=== PATIENT | male | born 1990 | race Two or more races ===

== ENCOUNTER → 2021-12-03 13:34 | Outpatient (BNVA) | payer MEDICAID, SELFPAY | PROVIDERS: Visit Provider Internal Medicine | DX: Z51.81 Encounter for therapeutic drug level monitoring (principal); F11.20 Opioid dependence, uncomplicated | CPT/HCPCS: 80305; 99202 ==

== ENCOUNTER → 2021-12-12 15:39 | Outpatient (BNVA) | payer MEDICAID, SELFPAY | PROVIDERS: Visit Provider Internal Medicine | DX: Z51.81 Encounter for therapeutic drug level monitoring (principal); F11.20 Opioid dependence, uncomplicated | CPT/HCPCS: 80305; 99212 ==

== ENCOUNTER → 2022-01-07 13:10 | Outpatient (BNVA) | payer MEDICAID, SELFPAY | PROVIDERS: Visit Provider Internal Medicine | DX: Z51.81 Encounter for therapeutic drug level monitoring (principal); F11.20 Opioid dependence, uncomplicated | CPT/HCPCS: 80305; 99212 ==

== ENCOUNTER → 2022-02-04 13:10 | Outpatient (BNVA) | payer MEDICAID, SELFPAY | PROVIDERS: Visit Provider Internal Medicine | DX: Z51.81 Encounter for therapeutic drug level monitoring (principal); F11.20 Opioid dependence, uncomplicated | CPT/HCPCS: 80305; 99212 ==

== ENCOUNTER → 2022-03-06 13:04 | Outpatient (BNVA) | payer MEDICAID, SELFPAY | PROVIDERS: Visit Provider Internal Medicine | DX: F11.20 Opioid dependence, uncomplicated (principal) | CPT/HCPCS: 80305; 99212 ==

== ENCOUNTER → 2022-04-03 13:08 | Outpatient (BNVA) | payer MEDICAID, SELFPAY | PROVIDERS: Visit Provider Internal Medicine | DX: F11.90 Opioid use, unspecified, uncomplicated (principal) | CPT/HCPCS: 80305; 99212 ==

== ENCOUNTER → 2022-06-02 14:39 | Outpatient (BNVA) | payer MEDICAID, SELFPAY | PROVIDERS: Visit Provider Internal Medicine | DX: Z51.81 Encounter for therapeutic drug level monitoring (principal); F11.20 Opioid dependence, uncomplicated | CPT/HCPCS: 99212 ==

== ENCOUNTER → 2022-06-29 14:54 | Outpatient (BNVA) | payer MEDICAID, SELFPAY | PROVIDERS: Visit Provider Internal Medicine | DX: F11.20 Opioid dependence, uncomplicated (principal); Z51.81 Encounter for therapeutic drug level monitoring; Z79.899 Other long term (current) drug therapy | CPT/HCPCS: 99212 ==

== ENCOUNTER → 2022-07-27 15:03 | Outpatient (BNVA) | payer MEDICAID, SELFPAY | PROVIDERS: Visit Provider Internal Medicine | DX: F11.20 Opioid dependence, uncomplicated (principal); Z51.81 Encounter for therapeutic drug level monitoring | CPT/HCPCS: 99212 ==

== ENCOUNTER 2022-08-09 11:23 | Emergency (ER) | payer MEDICAID, SELFPAY ==
--- NOTE | 2022-08-09 11:28 | PC.NURSE ---
CALLED FOR STAFF INTERNIST OFFICE BASED ONLY
[2022-08-09 11:48] VITALS: BP 100/75; PULSE 81; RESP 18; TEMP 36.8; O2SAT 97; BMI 26.2
[2022-08-09 19:14] VITALS: BP 101/48; PULSE 66; RESP 18; TEMP 36.8; O2SAT 99
== END 2022-08-09 19:41 | disposition left against medical advice (07) ==
PROVIDERS: Emergency Provider Emergency Medicine
DX: R51.9 Headache, unspecified (principal)
CPT/HCPCS: 99283

== ENCOUNTER → 2022-08-24 14:56 | Outpatient (BNVA) | payer MEDICAID, SELFPAY | PROVIDERS: Visit Provider Internal Medicine | DX: Z51.81 Encounter for therapeutic drug level monitoring (principal); F11.20 Opioid dependence, uncomplicated | CPT/HCPCS: 99212 ==

== ENCOUNTER → 2022-09-21 14:18 | Outpatient (BNVA) | payer MEDICAID, SELFPAY | PROVIDERS: Visit Provider Nurse Practitioner Psychiatric/Mental Health | DX: Z51.81 Encounter for therapeutic drug level monitoring (principal); F11.21 Opioid dependence, in remission | CPT/HCPCS: 99212 ==

== ENCOUNTER → 2022-10-19 14:42 | Outpatient (BNVA) | payer MEDICAID, SELFPAY | PROVIDERS: Visit Provider Nurse Practitioner Psychiatric/Mental Health | DX: F11.20 Opioid dependence, uncomplicated (principal); Z51.81 Encounter for therapeutic drug level monitoring; Z79.899 Other long term (current) drug therapy | CPT/HCPCS: 80305; 99212 ==

== ENCOUNTER → 2022-11-17 13:12 | Outpatient (BNVA) | payer MEDICAID, SELFPAY | PROVIDERS: Visit Provider Nurse Practitioner Psychiatric/Mental Health | DX: Z51.81 Encounter for therapeutic drug level monitoring (principal); F11.21 Opioid dependence, in remission | CPT/HCPCS: 99212 ==

== ENCOUNTER → 2022-12-15 14:01 | Outpatient (BNVA) | payer MEDICAID, SELFPAY | PROVIDERS: Visit Provider Nurse Practitioner Psychiatric/Mental Health | DX: F11.20 Opioid dependence, uncomplicated (principal) | CPT/HCPCS: 80305; 99212 ==

== ENCOUNTER → 2023-01-12 14:30 | Outpatient (BNVA) | payer MEDICAID, SELFPAY | DX: Z79.899 Other long term (current) drug therapy (principal); Z51.81 Encounter for therapeutic drug level monitoring; F11.21 Opioid dependence, in remission ==

== ENCOUNTER → 2023-02-09 16:18 | Outpatient (BNVA) | payer MEDICAID, SELFPAY | PROVIDERS: Visit Provider Nurse Practitioner Psychiatric/Mental Health | DX: F11.21 Opioid dependence, in remission (principal); Z79.899 Other long term (current) drug therapy; Z51.81 Encounter for therapeutic drug level monitoring | CPT/HCPCS: 99212 ==

== ENCOUNTER → 2023-03-09 16:27 | Outpatient (BNVA) | payer MEDICAID, SELFPAY | PROVIDERS: Visit Provider Nurse Practitioner Psychiatric/Mental Health | DX: Z51.81 Encounter for therapeutic drug level monitoring (principal); F11.21 Opioid dependence, in remission | CPT/HCPCS: 80305; 99212 ==

== ENCOUNTER 2023-05-10 15:25 | Outpatient (AMB) | payer MEDICAID, SELFPAY ==
--- NOTE | 2023-05-10 15:30 | A.OFFVIS_ITS ---
Intake Vital Signs 05/10/23 15:34 BP 116/70 Blood Pressure Location Lt radial Position Sitting Pulse 77 Pulse Source Pulse Oximeter Pulse Oximetry (%) 97 Oxygen Delivery Method Room Air Intake Visit Reasons: mat visit Intake Note: THE PATIENT PRESENTS FOR A MAT VISIT Decorator Mannequin Required: No Allergies No Known Allergies Allergy (Verified 05/10/23 15:35) HPI mat visit HPI Details Patient presents for follow up Currently prescribed Suboxone 8mg BID Reports doing well with recovery Discussed desire to taper and eventually discontinue reviewed Sublocade as an option--answered questions and provided patient with written medication information [facility] Medical History Opioid use disorder Review of Systems Const Reports as per HPI and Reports no additional complaints Physical Exam Vital Signs: Last Vital Signs Pulse 77 05/10/23 15:34 BP 116/70 05/10/23 15:34 Pulse Ox 97 05/10/23 15:34 Oxygen Delivery Method Room Air 05/10/23 15:34 Const General: cooperative, healthy appearing, comfortable, no acute distress, well developed and alert Nutritional Appearance: well nourished Orientation/consciousness: patient oriented x3 Limitations: no limitations Neuro General: patient oriented x3 Psych Appearance: well kempt Mental Status: mental status grossly normal Speech and movement: Normal speech and movement present Affect: normal affect Attitude: cooperative Thought process: Normal thought process present Thought content: Normal thought content present Insight: Good insight present (Psych) Judgement: Good judgement present (Psych) Assessment & Plan Assessment & Plan (1) Opioid use disorder, moderate, in sustained remission: Code(s): F11.21 - Opioid dependence, in remission Plan: * continue suboxone at current dose * follow up 2 months Medications: Refilled buprenorphine-naloxone 8-2 mg (Suboxone) 1 film sublingual BID 30 days 60 ea 1RF Coding Level of Care Code Est Pt Level 3 (52289) Diagnoses Opioid use disorder, moderate, in sustained remission F11.21
[2023-05-10 15:34] VITALS: BP 116/70; PULSE 77; O2SAT 97
== END 2023-05-10 16:03 | disposition home or self-care (01) ==
LOC: HO.HCC 15:25
PROVIDERS: Visit Provider Nurse Practitioner Psychiatric/Mental Health
DX: F11.21 Opioid dependence, in remission (principal)
CPT/HCPCS: 99213

== ENCOUNTER → 2023-05-10 15:25 | Outpatient (BNVA) | payer MEDICAID, SELFPAY | PROVIDERS: Visit Provider Nurse Practitioner Psychiatric/Mental Health | DX: F11.20 Opioid dependence, uncomplicated (principal) | CPT/HCPCS: 99212; 99213 ==

== ENCOUNTER 2023-07-06 14:45 | Outpatient (AMB) | payer MEDICAID, SELFPAY ==
--- NOTE | 2023-07-06 14:47 | A.OFFVIS_ITS ---
Intake Vital Signs 07/06/23 14:51 BP 112/72 Blood Pressure Location Lt radial Position Sitting Pulse 74 Pulse Source Pulse Oximeter Pulse Oximetry (%) 96 Oxygen Delivery Method Room Air Intake Visit Reasons: MAT Visit Intake Note: THE PATIENT PRESENTS FOR A MAT VISIT Airline Radio Operator Required: No Allergies No Known Allergies Allergy (Verified 05/10/23 15:35) HPI MAT Visit HPI Details Pt presents for OUD treatment follow up Currently being prescribed Suboxone 8mg BID Denies any side effects related to medication Doing well with recovery reminded to complete lab work [facility] Medical History Opioid use disorder Review of Systems Const Reports as per HPI and Reports no additional complaints Physical Exam Vital Signs: Last Vital Signs Pulse 74 07/06/23 14:51 BP 112/72 07/06/23 14:51 Pulse Ox 96 07/06/23 14:51 Oxygen Delivery Method Room Air 07/06/23 14:51 Const General: cooperative, healthy appearing, comfortable, no acute distress, well developed and alert Nutritional Appearance: well nourished Orientation/consciousness: patient oriented x3 Limitations: no limitations Neuro General: patient oriented x3 Psych Appearance: well kempt Mental Status: mental status grossly normal Speech and movement: Normal speech and movement present Affect: normal affect Attitude: cooperative Thought process: Normal thought process present Thought content: Normal thought content present Insight: Good insight present (Psych) Judgement: Good judgement present (Psych) Assessment & Plan Assessment & Plan (1) Opioid use disorder, moderate, in sustained remission: Code(s): F11.21 - Opioid dependence, in remission Plan: * continue suboxone at current dose * follow up 2 months Medications: Refilled buprenorphine-naloxone 8-2 mg (Suboxone) 1 film sublingual BID 60 ea 1RF 30 days Coding Level of Care Code Est Pt Level 3 (91053) Diagnoses Opioid use disorder, moderate, in sustained remission F11.21
[2023-07-06 14:51] VITALS: BP 112/72; PULSE 74; O2SAT 96
== END 2023-07-06 15:10 | disposition home or self-care (01) ==
PROVIDERS: Visit Provider Nurse Practitioner Psychiatric/Mental Health
DX: F11.21 Opioid dependence, in remission (principal)
CPT/HCPCS: 99213

== ENCOUNTER → 2023-07-06 14:45 | Outpatient (BNVA) | payer MEDICAID, SELFPAY | PROVIDERS: Visit Provider Nurse Practitioner Psychiatric/Mental Health | DX: F11.20 Opioid dependence, uncomplicated (principal) | CPT/HCPCS: 99212 ==

== ENCOUNTER 2023-09-01 15:55 | Outpatient (AMB) | payer MEDICAID, SELFPAY ==
--- NOTE | 2023-09-01 15:58 | A.OFFVIS_ITS ---
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 [facility] Medical History (Updated 09/02/23 @ 17:08 by Gaby Mcfarland CNP) Opioid use disorder Review of Systems Const Reports as per HPI and Reports no additional complaints Physical Exam Vital Signs: Last Vital Signs Pulse 84 09/01/23 16:09 BP 116/74 09/01/23 16:09 Pulse Ox 96 09/01/23 16:09 Oxygen Delivery Method Room Air 09/01/23 16:09 Const General: cooperative, healthy appearing, comfortable, no acute distress, well developed and alert Nutritional Appearance: well nourished Orientation/consciousness: patient oriented x3 Limitations: no limitations Neuro General: patient oriented x3 Psych Appearance: well kempt Mental Status: mental status grossly normal Speech and movement: Normal speech and movement present Affect: normal affect Attitude: cooperative Thought process: Normal thought process present Thought content: Normal thought content present Insight: Good insight present (Psych) Judgement: Good judgement present (Psych) Assessment & Plan Assessment & Plan (1) Opioid use disorder, moderate, in sustained remission: Code(s): F11.21 - Opioid dependence, in remission Plan: * continue suboxone at current dose * followup 3 months Medications: Refilled buprenorphine-naloxone 8-2 mg (Suboxone) 1 film sublingual BID 60 ea 1RF 30 days Coding Level of Care Code Est Pt Level 3 (02811) Diagnoses Opioid use disorder, moderate, in sustained remission F11.21
[2023-09-01 16:09] VITALS: BP 116/74; PULSE 84; O2SAT 96
== END 2023-09-01 16:33 | disposition home or self-care (01) ==
PROVIDERS: Visit Provider Nurse Practitioner Psychiatric/Mental Health
DX: F11.21 Opioid dependence, in remission (principal)
CPT/HCPCS: 99213

== ENCOUNTER → 2023-09-01 15:55 | Outpatient (BNVA) | payer MEDICAID, SELFPAY | PROVIDERS: Visit Provider Nurse Practitioner Psychiatric/Mental Health | DX: F11.21 Opioid dependence, in remission (principal) | CPT/HCPCS: 99212 ==

== ENCOUNTER 2023-11-24 15:24 | Outpatient (AMB) | payer MEDICAID, SELFPAY ==
--- NOTE | 2023-11-24 15:32 | A.OFFVISCC_ITS ---
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 no questions or concerns at this time [facility] Medical History (Updated 09/02/23 @ 17:08 by Gaby Mcfarland CNP) Opioid use disorder Review of Systems Const Reports as per HPI Physical Exam Vital Signs: Last Vital Signs Pulse 82 11/24/23 15:40 BP 118/78 11/24/23 15:40 Pulse Ox 97 11/24/23 15:40 Oxygen Delivery Method Room Air 11/24/23 15:40 Const General: cooperative, healthy appearing, comfortable, no acute distress, well developed and alert Nutritional Appearance: well nourished Orientation/consciousness: patient oriented x3 Limitations: no limitations Neuro General: patient oriented x3 Psych Appearance: well kempt Mental Status: mental status grossly normal Speech and movement: Normal speech and movement present Affect: normal affect Attitude: cooperative Thought process: Normal thought process present Thought content: Normal thought content present Insight: Good insight present (Psych) Judgement: Good judgement present (Psych) Results AMB 14 Panel Urine Drug Screen Urine Marijuana (THC) Negative Last Edit by Lucia Morse CMA on 11/24/23 15:48 Urine Cocaine Negative Last Edit by Lucia Morse CMA on 11/24/23 15:48 Urine Morphine Negative Last Edit by Lucia Morse CMA on 11/24/23 15:48 Urine Methamphetamine Negative Last Edit by Lucia Morse CMA on 11/24/23 15:48 Urine Amphetamine Negative Last Edit by Lucia Morse CMA on 11/24/23 15:4 8 Urine Benzodiazepine Negative Last Edit by Lucia Morse CMA on 11/24/23 15:48 Urine Barbiturates Negative Last Edit by Lucia Morse CMA on 11/24/23 15: 48 Urine Methadone Negative Last Edit by Lucia Morse CMA on 11/24/23 15:48 Urine Buprenorphine Positive Last Edit by Lucia Morse CMA on 11/24/23 15 :48 Urine Tricyclic Antidepressant Negative Last Edit by Lucia Morse CMA on 11/24/23 15:48 Urine MDMA Negative Last Edit by Lucia Morse CMA on 11/24/23 15:48 Urine Oxycodone Negative Last Edit by Lucia Morse CMA on 11/24/23 15:48 Urine Phencyclidine Negative Last Edit by Lucia Morse CMA on 11/24/23 15 :48 Urine Propoxyphene Negative Last Edit by Lucia Morse CMA on 11/24/23 15: 48 Results Reviewed Results Reviewed: Laboratory Last Values POC Urine Buprenorphine Positive 11/24/23 15:33 POC Urine Morphine Negative 11/24/23 15:33 POC Urine Oxycodone Negative 11/24/23 15:33 POC Urine Methadone Negative 11/24/23 15:33 POC Urine Propoxyphene Negative 11/24/23 15:33 POC Urine Barbiturates Negative 11/24/23 15:33 POC U Tricyclic Antidpr Negative 11/24/23 15:33 POC Urine PCP Negative 11/24/23 15:33 POC Ur Amphetamines Negative 11/24/23 15:33 POC Ur Methamphetamine Negative 11/24/23 15:33 POC Urine MDMA Negative 11/24/23 15:33 POC Ur Benzodiazepine Negative 11/24/23 15:33 POC Urine Cocaine Negative 11/24/23 15:33 POC Ur Marijuana (THC) Negative 11/24/23 15:33 Assessment & Plan Assessment & Plan (1) Opioid use disorder, moderate, in sustained remission: Code(s): F11.21 - Opioid dependence, in remission Plan: * continue suboxone at current dose * followup MAY Orders: Orders AMB 14 Panel Urine Drug Screen 11/24/23 Z51.81 - Encounter for therapeutic drug level monitoring Coding Level of Care Code Est Pt Level 3 (09462) Diagnoses Opioid use disorder, moderate, in sustained remission F11.21
[2023-11-24 15:40] VITALS: BP 118/78; PULSE 82; O2SAT 97
== END 2023-11-24 16:14 | disposition home or self-care (01) ==
PROVIDERS: Visit Provider Nurse Practitioner Psychiatric/Mental Health
DX: F11.21 Opioid dependence, in remission (principal)
CPT/HCPCS: 99213

== ENCOUNTER → 2023-11-24 15:24 | Outpatient (BNVA) | payer MEDICAID, SELFPAY | PROVIDERS: Visit Provider Nurse Practitioner Psychiatric/Mental Health | DX: Z51.81 Encounter for therapeutic drug level monitoring (principal); F11.21 Opioid dependence, in remission | CPT/HCPCS: 80305; 99212 ==

== ENCOUNTER 2024-02-09 15:29 | Outpatient (AMB) | payer MEDICAID, SELFPAY ==
--- NOTE | 2024-02-09 15:33 | MHC.AM.SUB ---
Vital Signs 02/09/24 15:48 BP 118/82 Blood Pressure Location Lt brachial Position Sitting Pulse 79 Pulse Source Pulse Oximeter Pulse Oximetry (%) 98 Oxygen Delivery Method Room Air Intake Visit Reasons: MAT VISIT Allergies No Known Allergies Allergy (Verified 11/24/23 15:41) HPI HPI MAT VISIT: Details: Pt presents for OUD in remission treatment follow up Currently being prescribed Suboxone 8mg BID Denies any side effects related to medication happy to share that he will be visiting his mother this summer [facility] Medical History (Updated 09/02/23 @ 17:08 by Gaby Mcfarland CNP) Opioid use disorder Review of Systems Const Reports as per HPI and Reports no additional complaints Physical Exam Vital Signs: Last Vital Signs Pulse 79 02/09/24 15:48 BP 118/82 02/09/24 15:48 Pulse Ox 98 02/09/24 15:48 Oxygen Delivery Method Room Air 02/09/24 15:48 Assessment & Plan Assessment & Plan (1) Opioid use disorder, moderate, in sustained remission: Code(s): F11.21 - Opioid dependence, in remission Category: Medical Plan: continue suboxone at current dose followup 3 months Medications: Refilled buprenorphine-naloxone 8-2 mg (Suboxone) 1 film sublingual BID 60 ea 3RF 30 days
[2024-02-09 15:48] VITALS: BP 118/82; PULSE 79; O2SAT 98
== END 2024-02-09 16:49 | disposition home or self-care (01) ==
LOC: HO.HCC 15:29
PROVIDERS: Visit Provider Nurse Practitioner Psychiatric/Mental Health
DX: F11.21 Opioid dependence, in remission (principal)
CPT/HCPCS: 99213

== ENCOUNTER → 2024-02-09 15:29 | Outpatient (BNVA) | payer MEDICAID, SELFPAY | PROVIDERS: Visit Provider Nurse Practitioner Psychiatric/Mental Health | DX: F11.21 Opioid dependence, in remission (principal); Z51.81 Encounter for therapeutic drug level monitoring; Z79.899 Other long term (current) drug therapy | CPT/HCPCS: 99212 ==

== ENCOUNTER → 2024-06-19 14:22 | Outpatient (BNVA) | payer MEDICAID, SELFPAY | PROVIDERS: Visit Provider Nurse Practitioner Psychiatric/Mental Health | DX: Z51.81 Encounter for therapeutic drug level monitoring (principal) ==

== ENCOUNTER 2024-08-04 09:12 | Outpatient (AMB) | payer MEDICAID, SELFPAY ==
--- NOTE | 2024-08-04 09:16 | A.OFFVISCC_ITS ---
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 Plans to see his mother in [place] again in September Requesting letter stating he is engaged in treatment with [facility]--mailed to home labs to be ordered [facility] Medical History (Updated 09/02/23 @ 17:08 by Gaby Mcfarland CNP) Opioid use disorder Review of Systems Const Reports as per HPI Telehealth Telehealth Telehealth Platform: Telephone Location of provider rendering services: practice address Location of patient: other Patient Identification confirmed using: Name, : Yes Telehealth method: voice only Patient verbally consented to treatment: Yes Patient verbally consented to billing insurance company: Yes Minutes spent on Phone/Video with Pt.: 15 Assessment & Plan Assessment & Plan (1) Opioid use disorder, moderate, in sustained remission: Code(s): F11.21 - Opioid dependence, in remission Category: Medical Plan: * continue suboxone at current dose * follow up in October * labs ordered
== END 2024-08-04 13:11 | disposition home or self-care (01) ==
LOC: HO.HCC 09:13
PROVIDERS: Visit Provider Nurse Practitioner Psychiatric/Mental Health
DX: F11.21 Opioid dependence, in remission (principal)
CPT/HCPCS: 99213

== ENCOUNTER → 2024-08-04 09:12 | Outpatient (BNVA) | payer MEDICAID, SELFPAY | PROVIDERS: Visit Provider Nurse Practitioner Psychiatric/Mental Health ==

== ENCOUNTER 2024-11-02 16:02 | Outpatient (AMB) | payer MEDICAID, SELFPAY ==
--- NOTE | 2024-11-02 16:08 | MHC.AM.SUB ---
Intake Visit Reasons: MAT Office Allergies No Known Allergies Allergy (Verified 11/24/23 15:41) HPI HPI MAT Office: Details: Patient presents for follow up Doing well with current dose of suboxone 8mg BID Still working FT, spending time with his family no concerns at this time Review of Systems Const Reports as per HPI and Reports no additional complaints Physical Exam Const General: cooperative, healthy appearing, comfortable, no acute distress, well developed and alert Nutritional Appearance: well nourished Orientation/consciousness: patient oriented x3 Limitations: no limitations Neuro General: patient oriented x3 Psych Appearance: well kempt Mental Status: mental status grossly normal Speech and movement: Normal speech and movement present Affect: normal affect Attitude: cooperative Thought process: Normal thought process present Thought content: Normal thought content present Insight: Good insight present (Psych) Judgement: Good judgement present (Psych) [facility] Medical History (Updated 09/02/23 @ 17:08 by Gaby Mcfarland CNP) Opioid use disorder Assessment & Plan Assessment & Plan (1) Opioid use disorder, moderate, in sustained remission: Code(s): F11.21 - Opioid dependence, in remission Category: Medical Plan: continue suboxone at current dose still needs to have labs completed follow up 4 months Medications: Changed From Suboxone 8-2 mg (buprenorphine-naloxone) 1 film sublingual BID 60 ea 0RF NS To buprenorphine-naloxone 8-2 mg (Suboxone) 1 film sublingual BID 60 ea 3RF
--- OUTSIDE RECORDS SUMMARY | 2024-11-02 19:30 | XMS_ITS | Clinical Summary ---
Author Organization [facility] Address [address] [place] [address] Phone Care Team Providers Care Electron Beam Machine Welder Setter Name Role Phone Physician, No Pcp Primary Care Provider Unavaila ble Allergies No known active allergies Medications Medication Sig Dispensed Refills Start Date End Date Status amoxicillin-clavulan ate (AUGMENTIN) 875-125 mg per tablet Take 1 tablet by mouth every 12 (twelve) hours for 10 days. 20 tablet 10/31/2024 11/10/2024 Active Encounters Date Type Department Care Team Description 10/31/2024 7:26 PM EST - 10/31/2024 8:20 PM EST Emergency [facility] Emergency [address] [place] [address] Right otitis media, unspecified otitis media type (Primary Dx) Discharge Disposition: Home or Self Care from Last 3 Months Social History Tobacco Use Types Packs/Day Years Used Date Smoking Tobacco: Never Assessed Sex and Gender Information Value Date Recorded Sex Assigned at Not on file Gender Identity Not on file Sexual Orientation Not on file Job Start Date Occupation Industry Not on file Not on file Not on file Last Filed Vital Signs Vital Sign Reading Time Taken Comments Blood Pressure 123/109 10/31/2024 5:51 PM EST Pulse 74 10/31/2024 5:51 PM EST Temperature 36.5 ??C (97.7 ??F) 10/31/2024 5:51 PM ES T Respiratory Rate 18 10/31/2024 5:51 PM EST Oxygen Saturation 97% 10/31/2024 5:51 PM EST Inhaled Oxygen Concentration - - Weight 80.7 kg (178 lb) 10/31/2024 5:51 PM EST Height 175.3 cm (5' 9 ) 10/31/2024 5:51 PM EST Body Mass Index 26.29 10/31/2024 5:51 PM EST Plan of Treatment Health Maintenance Due Date Last Done Comments Hepatitis B Vaccines (1 of 3 - 19+ 3-dose series) 01/04/2011 Depression Screening 04/26/2024 HIV Screening 04/26/2024 Hepatitis C Screening 04/26/2024 Social Influencers of Health Screening 04/26/2024 COVID-19 Vaccine (1 - 2023-2 5 season) 2024 Influenza Vaccine (#1) 2024 DTaP,Tdap,and Td Vaccines (2 - Td or Tdap) 03/14/2032 03/14/2022 HIB Vaccines Aged Out No longer eligi ble based on patient's age to complete this topic HPV Vaccines Aged Out No longer eligi ble based on patient's age to complete this topic Hepatitis A Vaccines Aged Out No long er eligible based on patient's age to complete this topic IPV Vaccines Aged Out No longer eligi ble based on patient's age to complete this topic MMR Vaccines Aged Out No longer eligi ble based on patient's age to complete this topic Meningococcal ACWY Vaccine Aged Out N o longer eligible based on patient's age to complete this topic Pneumococcal Vaccine: Pediat rics (0 to 5 Years) and At-Risk Patients (6 to 64 Years) Aged Out No longer eligi ble based on patient's age to complete this topic RSV Immunization Patients Un jacqueline 20 months Aged Out No longer eligible b ased on patient's age to complete this topic Varicella Vaccines Aged Out No longer eligible based on patient's age to complete this topic Care Teams Electron Beam Machine Welder Setter Relationship Specialty Start Date End Date Physician, No Pcp PCP - General 10/31/24
--- OUTSIDE RECORDS SUMMARY | 2024-11-02 19:30 | XMS_ITS | Clinical Summary ---
Author Organization [employer] Address [address] [place] [address] [address] [place] [address] Care Team Providers Care Internal Grinder Tender Name Role Phone Taylor Lorenzo MD Primary Care Provider [phone] Allergies No known active allergies Medications baclofen (Lioresal) 10 MG tabletIndication s:Low back pain, unspecified back pain laterality, unspecified chronicity, unspecified whether sciatica present TAKE 1 TABLET (10 MG) BY MOUTH NEEDED IN THE MORNING AND AT BEDTIME FOR MUSCLE SPASMS 60 tablet 1 3 Active naproxen (Naprosyn) 500 MG tabletIndication s:Low back pain, unspecified back pain laterality, unspecified chronicity, unspecified whether sciatica present TAKE 1 TABLET (500 MG) BY MOUTH NEEDED IN THE MORNING AND AT BEDTIME FOR MILD OR MODERATE PAIN 60 tablet 1 3 Active Active Problems No known active problems Social History Tobacco Use Types Packs/Day Years Used Date Smoking Tobacco: Never Smokeless Tobacco: Never Tobacco Cessation:Counseling Given: Not Answered Sex and Gender Information Value Date Recorded Sex Assigned at Male 08/03/2022 10:39 AM EDT Legal Sex Male 10:39 AM EDT Gender Identity Male 08/03/2022 10:39 AM EDT Sexual Orientation Straight 08/03/2022 10 :39 AM EDT Last Filed Vital Signs Vital Sign Reading Time Taken Comments Blood Pressure 121/69 12/08/2022 12:54 PM EST Pulse 97 12/08/2022 12:54 PM EST Temperature 36.7 ??C (98.1 ??F) 12/08/2022 1 2:54 PM EST Respiratory Rate 16 12/08/2022 12:5 4 PM EST Oxygen Saturation 97% 12/08/2022 12: 54 PM EST Inhaled Oxygen Concentration - - Weight 87.5 kg (192 lb 12.8 oz) 023 12:54 PM EST Height 175.3 cm (5' 9 ) 12/08/2022 12:5 4 PM EST Body Mass Index 28.47 12/08/2022 12:54 PM EST Plan of Treatment Health Maintenance Due Date Last Done Comments Depression Screening 1992 HIV Screening 1992 SDOH Screening 1992 Alcohol/Substance Use Screening 2004 Family Planning (PISQ) 01/04/2007 Hepatitis C Screening 01/04/2010 Hepatitis B Vaccines (1 of 3 - 19+ 3-dose series) 01/04/2011 Tobacco Screening 12/09/2023 12/08/2022 COVID-19 Vaccine (1 - 2023-2 5 season) 2024 Influenza Vaccine (#1) 2024 08/26/2022 DTaP/Tdap/Td Vaccines (2 - T d or Tdap) 08/26/2032 08/26/2022 Zoster Vaccines (1 of 2) 01/04/2042 RSV Patients and Pa tients Aged 60 years or older (1 - 1-dose 75+ series) 01/04/2067 HIB Vaccines Aged Out No longer eligi [...] patient's age to complete this topic Meningococcal Vaccine Aged Out No georgie hemanth eligible based on patient's age to complete this topic Pneumococcal Vaccine: Pediat rics (0 to 5 Years) and At-Risk Patients (6 to 49) Years) Aged Out No longer elig ible based on patient's age to complete this topic RSV under 20 months Aged Out No longe r eligible based on patient's age to complete this topic Rotavirus Vaccines Aged Out No longer eligible based on patient's age to complete this topic Insurance [facility] C3 Care Teams Internal Grinder Tender Relationship Specialty Start Date End Date Talyor Lorenzo MD [address] [place] [id number] PCP - General Family Medicine 04/05/24
--- OUTSIDE RECORDS SUMMARY | 2024-11-02 19:30 | XMS_ITS | Encounter Summary ---
Author Organization [facility] Address [address] [place] [address] [address] [place] [address] Care Team Providers Care Food Selector Name Role Phone Sabino Kapoor Primary Care Provider Priscila Saucedo Primary Care Provider [phone] Taylor Lorenzo MD Primary Care Provider [phone] Encounter Details Date Type Department Care Team (Latest Contact Info) Description 11/19/2021 Abstract [facility] CONVERSION[facility] Dental, Provider, DDS Social History Tobacco Use Types Packs/Day Years Used Date Smoking Tobacco: Never Assessed Sex and Gender Information Value Date Recorded Sex Assigned at Male 08/03/2022 10:39 AM EDT Legal Sex Male 10:39 AM EDT Gender Identity Male 08/03/2022 10:39 AM EDT Sexual Orientation Straight 08/03/2022 10 :39 AM EDT documented as of this encounter Plan of Treatment Not on file documented as of this encounter Visit Diagnoses Not on filedocumented in this encounter Care Teams Food Selector Relationship Specialty Start Date End Date Sabino Kapoor AGNP PCP - General Family Medicine 02/08/23 06/17/23 Priscila Teixeira FNP [address] [place] [address] PCP - General Family Medicine 06/18/23 04/04/24 Taylor Lorenzo MD [address] [place] [address] PCP - General Family Medicine 04/05/24 documented as of this encounter
--- OUTSIDE RECORDS SUMMARY | 2024-11-02 19:30 | XMS_ITS | Encounter Summary ---
Author Organization [facility] Address [address] [place] [address] Care Team Providers Care Melter Loader Name Role Phone Physician, No Pcp Primary Care Provider Unavaila ble Reason for Visit * Reason Comments Earache Encounter Details Date Type Department Care Team (Late st Contact Info) Description 10/31/2024 7:26 PM EST - 10/31/2024 8:20 PM EST Emergency [facility] Emergency [address] [place] [address] Right otitis media, unspecified otitis media type (Primary Dx) Discharge Disposition: Home or Self Care Social History Tobacco Use Types Packs/Day Years Used Date Smoking Tobacco: Never Assessed Sex and Gender Information Value Date Recorded Sex Assigned at Not on file Gender Identity Not on file Sexual Orientation Not on file Job Start Date Occupation Industry Not on file Not on file Not on file documented as of this encounter Last Filed Vital Signs Vital Sign Reading [...] Mass Index 26.29 10/31/2024 5:51 PM EST documented in this encounter Discharge Instructions * Attachments The following attachments cannot be sent through Care Everywhere. * Otitis Media (Thai) documented in this encounter Medications at Time of Discharge Medication Sig Dispensed Refills Start Date End Date amoxicillin-clavulanate (AUGMENTIN) 875-125 mg per tablet Take 1 tablet by mouth every 12 (twelve) hours for 10 days. 20 tablet 10/31/2024 11/10/2024 documented as of this encounter Ordered Prescriptions Prescription Sig Dispensed Refills Start Date End Da te amoxicillin-clavulanate (AUGMENTIN) 875-125 mg per tablet Take 1 tablet by mouth every 12 (twelve) hours for 10 days. 20 tablet 10/31/2024 11/10/2024 documented in this encounter Discharge Disposition Disposition Code Departure Means Destination Comment s Home or Self Care documented in this encounter Progress Notes * Summer Grande RN - 10/31/2024 5:48 PM EST Patient reports right ear pain and itchiness x 2 days. Reports hx of ear infection last year had risk of spreading to structures in their head. Denies drainage. Has been using OTC ear drops for relief. Reports decrease in hearing, pressure pain, and sound sensitivity. * TIAN Mccollum - 10/31/2024 5:26 PM EST Emergency Medicine Note Patient Name: Willian Vogel Initial Evaluation: 10/31/2024 : 1990 Patient's PCP: No Pcp Physician Emergency Physician: TIAN Mccollum History of Present Illness Chief Complaint: Chief Complaint Patient presents with Earache HPI: 34-year-old male who denies past medical history presents with right ear pain for a few days. He has tried asqf-cux-dogdwhk earwax drops as he had earwax impaction 4 years ago when he had pain like this. He denies trauma, fevers, cough, shortness of breath, rash ROS: I have performed a ROS with the pertinent positives and negatives documented in the history ofpresent illness. Previous History No past medical history on file. No past surgical history on file. No family history on file. has No Known Allergies. No current facility-administered medications on file prior to encounter. No current outpatient medications on file prior to encounter. Physical Exam ED Triage Vitals [10/31/24 1751] Temp Heart Rate Resp BP 36.5 ??C (97.7 ??F) 74 18 (!) 123/109 SpO2 Temp Source Heart Rate Source Patient Position 97 % Oral Monitor Sitting BP Location FiO2 (%) Right arm;Upper -- General: awake, calm, cooperative, No apparent distress Skin: warm, dry, No diaphoresis Eyes: PERRLA, EOMI ENT: mucosa moist, throat is clear, no lymphadenopathy, bilateral ear canals are clear without significant cerumen/erythema. Right TM is erythematous/bulging Neck: soft/supple, full range of motion, no nuchal rigidity Respiratory: clear to auscultation Cardiovascular: regular rate and rhythm, no peripheral edema Musculoskeletal: appropriate range of motion in upper and lower extremities Neurological: alert and oriented X3, strength 5/5 bilateral hands, 5/5 strength upper and lower extremities Psychiatric: stable mood and affect Results Labs Reviewed - No data to display Abnormal Labs Reviewed - No data to display No orders to display I have discussed the incidental/abnormal imaging and/or lab abnormalities with the patient and haveinstructed them the need for further evaluation and workup with their primary care doctor. The laboratory results, imaging results and other diagnostic exam results were reviewed in the EMR. EKG Interpretation Critical Care Time None ? Medical Decision Making MDM as described in ED course below Medications - No data to display ED Course as of 11/01/24221Oct 31, 20242009 Seen and evaluated. History and physical exam performed. Vitals reviewed. Exam concerning forright otitis media. Discussed treatment, follow-up and return precautions [AT] ED Course User Index [AT] TIAN Mccollum Clinical Impressions as of 11/01/24221 Right otitis media, unspecified otitis media type Procedures Procedures Differential Diagnosis Otitis media Otitis externa Cerumen impaction Eustachian tube dysfunction Diagnosis 1. Right otitis media, unspecified otitis media type Disposition Discharge Condition: Stable ED Prescriptions Medication Sig Dispense Start Date End Date Auth. Provider amoxicillin-clavulanate (AUGMENTIN) 875-125 mg per tablet Take 1 tablet by mouth every 12 (twelve) hours for 10 days. 20 tablet 10/31/2024 11/10/2024 TIAN Mccolulm Physician Attestation TIAN Mccollum 10/31/242010 TIAN Mccollum 11/01/24 0222 documented in this encounter Plan of Treatment Not on file documented as of this encounter Visit Diagnoses Diagnosis Right otitis media, unspecified otitis media type- Primary documented in this encounter Care Teams Melter Loader Relationship Specialty Start Date End Date Physician, No Pcp PCP - General 10/31/24 documented as of this encounter
== END 2024-11-02 16:30 | disposition home or self-care (01) ==
PROVIDERS: Visit Provider Nurse Practitioner Psychiatric/Mental Health
DX: F11.21 Opioid dependence, in remission (principal)
CPT/HCPCS: 99213

== ENCOUNTER → 2024-11-02 16:02 | Outpatient (BNVA) | payer MEDICAID, SELFPAY | PROVIDERS: Visit Provider Nurse Practitioner Psychiatric/Mental Health | DX: F11.21 Opioid dependence, in remission (principal); Z51.81 Encounter for therapeutic drug level monitoring | CPT/HCPCS: 99212 ==

== ENCOUNTER 2025-02-19 15:45 | Outpatient (AMB) | payer SELFPAY ==
[2025-02-19 15:50] VITALS: PULSE 80; O2SAT 98
--- NOTE | 2025-02-19 15:50 | MHC.OFFVIS ---
Vital Signs 02/19/25 15:50 Pulse 80 Pulse Source Pulse Oximeter Pulse Oximetry (%) 98 Oxygen Delivery Method Room Air Intake Visit Reasons: MAT Allergies No Known Allergies Allergy (Verified 02/19/25 15:50) HPI HPI MAT: Details: He is doing well. He takes 8/2 mg Suboxone bid. He is working all the time he says and no thoughts of using. [facility] Medical History Opioid use disorder Review of Systems Const All systems reviewed & are unremarkable except as noted in HPI and below Physical Exam Vital Signs: Last Vital Signs Pulse 80 02/19/25 15:50 Pulse Ox 98 02/19/25 15:50 Oxygen Delivery Method Room Air 02/19/25 15:50 Const General: cooperative Assessment & Plan Assessment & Plan (1) Opioid use disorder, moderate, in sustained remission: Comment: He is doing well Code(s): F11.21 - Opioid dependence, in remission Category: Medical Plan: Suboxone 8/2 bid,one month and two refills. See in three months. 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 Plan Continue Suboxone See in three months Medications: New buprenorphine-naloxone 8-2 mg (Suboxone) 1 film sublingual BID 60 ea 2RF 30 days Coding Level of Care Code Est Pt Level 3 (79400) Diagnoses Opioid use disorder, moderate, in sustained remission F11.21 Other half-way (current) drug therapy Z79.899
== END 2025-02-19 16:12 | disposition home or self-care (01) ==
LOC: HO.HCC 15:45
PROVIDERS: Visit Provider Internal Medicine
DX: F11.21 Opioid dependence, in remission (principal); Z79.899 Other long term (current) drug therapy
CPT/HCPCS: 99213

== ENCOUNTER → 2025-02-19 15:45 | Outpatient (BNVA) | payer SELFPAY | PROVIDERS: Visit Provider Internal Medicine | DX: F11.21 Opioid dependence, in remission (principal); Z79.899 Other long term (current) drug therapy | CPT/HCPCS: 99212 ==

== ENCOUNTER 2025-05-30 16:11 | Outpatient (AMB) | payer SELFPAY ==
--- NOTE | 2025-05-30 16:16 | A.OFFVIS_ITS ---
Vital Signs 05/30/25 16:17 Weight 190 lb BP 110/68 Pulse 70 Pulse Oximetry (%) 95 Intake Visit Reasons: mat Allergies No Known Allergies Allergy (Verified 05/30/25 16:18) HPI Comments Details: A 35-year-old male presents for a follow-up r/t SONAL in sustained remission with buprenorphine-naloxone 8-2 mg BID. Denies use of opiates, alcohol, and other substances. Reports continuing to work full-time and this keeps him focused. [facility] Medical History Opioid use disorder Review of Systems Const All systems reviewed & are unremarkable except as noted in HPI and below Physical Exam Vital Signs: Last Vital Signs Pulse 70 05/30/25 16:17 BP 110/68 05/30/25 16:17 Pulse Ox 95 05/30/25 16:17 Const General: cooperative Assessment & Plan Assessment & Plan (1) Opioid use disorder, moderate, in sustained remission: Comment: He is doing well Code(s): F11.21 - Opioid dependence, in remission Category: Medical Plan The plan of care is to continue with buprenorphine-naloxone 8-2 mg BID and follow-up in 3 months or sooner if needed. Medications: Refilled buprenorphine-naloxone 8-2 mg (Suboxone) 1 film sublingual BID 60 ea 2RF 30 days Patient Instructions: - Continue with buprenorphine-naloxone as prescribed. - Follow-up in 3 months or sooner if needed. - Call with questions, concerns, or to report side effects/new onset of symptoms to [facility]. - The patient verbalized understanding and agreed with plan of care. Coding Level of Care Code Est Pt Level 3 (80188) Diagnoses Opioid use disorder, moderate, in sustained remission F11.21
[2025-05-30 16:17] VITALS: BP 110/68; PULSE 70; O2SAT 95
--- OUTSIDE RECORDS SUMMARY | 2025-05-30 17:04 | XMS_ITS | Clinical Summary ---
Author Organization [facility] Address [address] [place] [address] 7 [place] [address] Care Team Providers Care Human Services Supervisor Name Role Phone Taylor Lorenzo MD Primary Care Provider [phone] Allergies No known active allergies Medications baclofen [...] 97 12/08/2022 12:54 PM EST Temperature 36.7 C (98.1 F) 12/08/2022 12:54 PM EST Respiratory Rate 16 12/08/2022 12:5 [...] 1992 HIV Screening 1992 SDOH Screening 1992 Disability Screening 1992 Alcohol/Substance Use Screening 2004 Family Planning (PISQ) 01/04/2007 HPV Vaccines (1 - Male 3-dos e series) 01/04/2007 Hepatitis C Screening 01/04/2010 Hepatitis B Vaccines (1 of 3 - 19+ 3-dose series) 01/04/2011 Tobacco Screening 12/09/2023 12/08/2022 COVID-19 Vaccine (1 - 2023-2 5 season) 2024 Influenza Vaccine (#1) 2025 08/26/2022 DTaP/Tdap/Td Vaccines (2 - T d [...] patient's age to complete this topic Meningococcal B Vaccine Aged Out No l onger eligible based on patient's age to complete this topic Meningococcal Vaccine Aged Out No georgie hemanth eligible based on patient's age to complete this topic Pneumococcal Vaccine: Pediat rics (0 to 5 Years) and At-Risk Patients (6 to 49) Years Aged Out No longer eligi ble based on patient's age to complete this topic RSV under 20 months Aged Out No longe r eligible based on patient's age to complete this topic Rotavirus Vaccines Aged Out No longer eligible based on patient's age to complete this topic [place] [address] [place] [address] C3 Care Teams Human Services Supervisor Relationship Specialty Start Date End Date Taylor Lorenzo MD [address] [place] [id number] PCP - General Family Medicine 04/05/24
--- OUTSIDE RECORDS SUMMARY | 2025-05-30 17:04 | XMS_ITS | Encounter Summary ---
Author Organization [facility] Address [address] [place] [address] [address] [place] [address] Care Team Providers Care Shaft Repairer Name Role Phone Sabino Kapoor Primary Care Provider Priscila Saucedo Primary Care Provider [phone] Taylor Lorenzo MD Primary Care Provider [phone] Encounter Details Date Type Department Care Team (Latest Contact Info) Description 11/19/2021 Abstract [facility] CONVERSIONS Dental, Provider, DDS Social History Tobacco [...] on filedocumented in this encounter Care Teams Shaft Repairer Relationship Specialty Start Date End Date Sabino Kapoor AGNP PCP - General Family Medicine 02/08/23 06/17/23 Priscila Teixeira FNP [address] [place] [address] PCP - General Family Medicine 06/18/23 04/04/24 Taylor Lorenzo MD [address] [place] [address] PCP - General Family Medicine 04/05/24 documented as of this encounter
--- OUTSIDE RECORDS SUMMARY | 2025-05-30 17:04 | XMS_ITS | Clinical Summary ---
Author Organization [facility] Address [address] [place] [address] Phone Care Team Providers Care Board Operator Name Role Phone Physician, No Pcp Primary Care Provider Unavaila ble Allergies No known active allergies Social History Tobacco Use Types Packs/Day Years Used Date Smoking Tobacco: Never Assessed Sex and Gender Information Value Date Recorded Sex Assigned at Not on file Legal Sex Male 1:38 PM EDT Gender Identity Not on file Sexual Orientation Not on file Last Filed Vital Signs Vital Sign Reading Time Taken Comments Blood Pressure 123/109 10/31/2024 5:51 PM EST Pulse 74 10/31/2024 5:51 PM EST Temperature 36.5 C (97.7 F) 10/31/2024 5:51 PM EST Respiratory Rate 18 10/31/2024 5:51 PM EST [...] of 3 - 19+ 3-dose series) 01/04/2011 HIV Screening 04/26/2024 Hepatitis C Screening 04/26/2024 Social Influencers of Health Screening 04/26/2024 COVID-19 Vaccine (1 - 2023-2 5 season) 2024 Depression Screening 10/04/2024 Influenza Vaccine (#1) 2025 DTaP,Tdap,and Td Vaccines (2 - Td or [...] 5 Years) and At-Risk Patients (6 to 49 Years) Aged Out No longer eligi ble based on patient's age to complete this topic RSV Immunization Patients Un jacqueline 20 months Aged Out No longer eligible b ased on patient's age to complete this topic Varicella Vaccines Aged Out No longer eligible based on patient's age to complete this topic Care Teams Board Operator Relationship Specialty Start Date End Date Physician, No Pcp PCP - General 10/31/24
== END 2025-05-30 16:26 | disposition home or self-care (01) ==
LOC: HO.HCC 16:11
PROVIDERS: Visit Provider Clinical Nurse Specialist Psychiatric/Mental Health
DX: F11.21 Opioid dependence, in remission (principal)
CPT/HCPCS: 99213

== ENCOUNTER → 2025-05-30 16:11 | Outpatient (BNVA) | payer SELFPAY | PROVIDERS: Visit Provider Clinical Nurse Specialist Psychiatric/Mental Health | DX: F11.21 Opioid dependence, in remission (principal); Z79.899 Other long term (current) drug therapy | CPT/HCPCS: 99212 ==

== ENCOUNTER 2025-08-27 15:50 | Outpatient (AMB) | payer SELFPAY ==
[2025-08-27 16:02] VITALS: BP 108/70; PULSE 66; O2SAT 98
--- NOTE | 2025-08-27 16:02 | MHC.OFFVIS ---
Vital Signs 08/27/25 16:02 Weight 195 lb BP 108/70 Blood Pressure Location Lt brachial Position Sitting Pulse 66 Pulse Source Pulse Oximeter Pulse Oximetry (%) 98 Intake Visit Reasons: MAT Allergies No Known Allergies Allergy (Verified 08/27/25 16:03) HPI Comments Details: A 35-year-old male presents for a follow-up visit r/t SOANL in sustained remission with buprenorphine-naloxone 8-2 mg BID. Denies use of opiates, alcohol, and other substances. Reports continuing to work full-time and was able to take a 2 week vacation. Engages in conversation re: looking forward to spending quality time with family over the holiday. [facility] Medical History Opioid use disorder Review of Systems Const All systems reviewed & are unremarkable except as noted in HPI and below Physical Exam Vital Signs: Last Vital Signs Pulse 66 08/27/25 16:02 BP 108/70 08/27/25 16:02 Pulse Ox 98 08/27/25 16:02 Const General: cooperative Assessment & Plan Assessment & Plan (1) Opioid use disorder, moderate, in sustained remission: Comment: He is doing well Code(s): F11.21 - Opioid dependence, in remission Category: Medical Plan The plan of care is to continue with buprenorphine-naloxone 8-2 mg BID and follow-up in 3 months or sooner if needed. Medications: Changed From buprenorphine-naloxone 8-2 mg (Suboxone) 1 film sublingual BID 30 days 60 ea 2RF To buprenorphine-naloxone 8-2 mg (Suboxone) One film sublingually twice per day 1 film sublingual BID 60 ea 2RF 30 days Patient Instructions: - Continue with buprenorphine-naloxone as prescribed. - Follow-up in 3 months or sooner if needed. - Call with questions, concerns, or to report side effects/new onset of symptoms to [facility]. - The patient verbalized understanding and agreed with plan of care. Coding Level of Care Code Est Pt Level 3 (07075) Diagnoses Opioid use disorder, moderate, in sustained remission F11.21
--- OUTSIDE RECORDS SUMMARY | 2025-08-27 20:14 | XMS_ITS | Clinical Summary ---
Author Organization [facility] Address [address] [place] [address] Phone Care Team Providers Care Tax Consultant Name Role Phone Physician, No Pcp Primary [...] of 3 - 19+ 3-dose series) 01/04/2011 HPV Vaccines (1 - 3-dose SCD M series) 01/04/2019 HIV Screening 04/26/2024 Hepatitis C Screening 04/26/2024 Social Influencers of Health Screening 04/26/2024 Depression Screening 10/04/2024 COVID-19 Vaccine (1 - 2024-2 6 season) 2025 Influenza Vaccine (#1) 2025 DTaP,Tdap,and Td Vaccines (2 - Td or Tdap) 03/14/2032 03/14/2022 RSV Immunization Adult Patie nts (1 - 1-dose 75+ series) 01/04/2067 HIB [...] age to complete this topic Care Teams Tax Consultant Relationship Specialty Start Date End Date Physician, No Pcp PCP - General 10/31/24
--- OUTSIDE RECORDS SUMMARY | 2025-08-27 20:14 | XMS_ITS | Encounter Summary ---
Author Organization [facility] Address [address] [place] [address] [address] [place] [address] Care Team Providers Care Belt Dresser Name Role Phone Sabino Kapoor Primary Care Provider Priscila Saucedo Primary Care Provider [phone] Taylor Lorenzo MD Primary Care Provider [phone] Encounter Details Date Type Department Care Team (Latest Contact Info) Description 11/19/2021 Abstract [facility] CONVERSIONS Dental, Provider, DDS Social History [...] on filedocumented in this encounter Care Teams Belt Dresser Relationship Specialty Start Date End Date Sabino Kapoor AGNP PCP - General Family Medicine 02/08/23 06/17/23 Priscila Teixeira FNP [address] [place] [address] PCP - General Family Medicine 06/18/23 04/04/24 Taylor Lorenzo MD [address] [place] [address] PCP - General Family Medicine 04/05/24 documented as of this encounter
--- OUTSIDE RECORDS SUMMARY | 2025-08-27 20:14 | XMS_ITS | Clinical Summary ---
Author Organization [facility] Address [address] [place] [address] [address] [place] [address] Care Team Providers Care Manager Nc Name Role Phone Taylor Lorenzo MD Primary Care Provider [phone] Allergies No known active allergies Medications baclofen [...] Screening 12/09/2023 12/08/2022 COVID-19 Vaccine (1 - 2024-2 6 season) 2025 Influenza Vaccine (#1) 2025 08/26/2022 DTaP/Tdap/Td Vaccines [...] patient's age to complete this topic [place] [place] [address] C3 Care Teams Manager Nc Relationship Specialty Start Date End Date Taylor Lorenzo MD [address] [place] [id number] PCP - General Family Medicine 04/05/24
== END 2025-08-27 16:13 | disposition home or self-care (01) ==
LOC: HO.HCC 15:50
PROVIDERS: Visit Provider Clinical Nurse Specialist Psychiatric/Mental Health
DX: F11.21 Opioid dependence, in remission (principal)
CPT/HCPCS: 99213

== ENCOUNTER → 2025-08-27 15:50 | Outpatient (BNVA) | payer SELFPAY | PROVIDERS: Visit Provider Clinical Nurse Specialist Psychiatric/Mental Health | DX: F11.21 Opioid dependence, in remission (principal) | CPT/HCPCS: 99212 ==